=== PATIENT | male | born 1970 | race Hispanic/Latino ===

== ENCOUNTER 2016-09-02 20:37 | Emergency (ER) | payer OTHER ==
[2016-09-02 21:17] VITALS: O2SAT 98
[2016-09-02] MEDS ORDERED: ceFAZolin 1 GM in Sodium Chloride 0.9% 100 ML IVPB STA (21:51)
[2016-09-02 22:21] LABS: BASO % 0.6 % (0.0-2.0); EOS # 0.1 K/uL (0.0-0.7); EOS % 1.3 % (0.0-4.0); HEMATOCRIT 42.8 % (35.0-51.0); LYMPH # 1.8 K/uL (1.0-4.3); LYMPH % 23.7 % (20.0-40.0); MEAN CELL VOLUME 85.1 fl (80.0-94.0); MEAN CORPUSCULAR HEMOGLOBIN 29.3 pg (27.0-31.0); MEAN CORPUSCULAR HGB CONC 34.4 g/dL (33.0-37.0); MEAN PLATELET VOLUME 8.1 fl (7.2-11.7); MONO % 13.5 % (0.0-10.0); NEUT # 4.5 K/uL (1.8-7.0); NEUT % 60.9 % (50.0-75.0); NRBC % 0.1 % (0.0-0.0); RED CELL DISTRIBUTION WIDTH 13.9 % (11.5-14.5); WHITE BLOOD COUNT 7.4 K/uL (4.8-10.8)
[2016-09-02 22:26] LABS: CHLORIDE 106 mmol/L (98-107); POTASSIUM 3.8 MMOL/L (3.6-5.0); SODIUM 140 mmol/l (132-148)
[2016-09-02 22:29] LABS: BLOOD UREA NITROGEN 17 mg/dl (9-20); CARBON DIOXIDE 25 mmol/L (22-30); GFR AFRICAN-AMERICAN > 60; GLUCOSE,RANDOM 114 mg/dL (75-110)
--- NOTE | 2016-09-02 22:29 | ED PDOC ---
HPI: Skin/Bite Injury Time Seen by Provider: 09/02/16 21:30 Chief Complaint (Nursing): Groin Pain Chief Complaint (Provider): Fever History Per: Patient History/Exam Limitations: no limitations Onset/Duration Of Symptoms: Days (x3) Current Symptoms Are (Timing): Still Present Additional Complaint(s): Karlos Baires is a 46 year old male who presents to the emergency department for an evaluation of a fever associated with chills, right buttock pain, and swelling on his right groin area. Denied any cough, shortness of breath, abdomen pain, dysuria or hematuria. Patient stated he [place] when his symptoms began. Reported taking ibuprofen and acetaminophen for symptom relief. PMD: none provided Past Medical History Reviewed: Historical Data, Nursing Documentation, Vital Signs Vital Signs: Last Vital Signs Temp 98.9 F 09/02/16 21:14 Pulse 74 09/02/16 21:14 Resp 16 09/02/16 21:14 BP 147/78 09/02/16 21:14 Pulse Ox 98 09/02/16 22:45 - Medical History PMH: Back Problems, Hypercholesterolemia - Surgical History Surgical History: Back Surgery (x2), Tonsillectomy - Family History Family History: States: Unknown Family Hx - Social History Current smoker - smoking cessation education provided: No Alcohol: Occasional Drugs: Denies - Home Medications Home Medications: Ambulatory Orders Medication Instructions Recorded Cephalexin [cephalexin] 500 mg PO BID #20 cap 09/02/16 - Allergies Allergies/Adverse Reactions: Allergies Allergy/AdvReac Type Severity Reaction Status Date / Time No Known Allergies Allergy Verified 09/02/16 21:14 Review of Systems ROS Statement: Except As Marked, All Systems Reviewed And Found Negative Constitutional: Positive for: Fever, Chills Respiratory: Negative for: Cough, Shortness of Breath Gastrointestinal: Negative for: Abdominal Pain Genitourinary Male: Positive for: Other (swelling to right groin area). Negative for: Dysuria, Hematuria Musculoskeletal: Positive for: Other (right buttock pain) Physical Exam - Reviewed Nursing Documentation Reviewed: Yes Vital Signs Reviewed: Yes - Physical Exam Appears: Positive for: Well, Non-toxic, No Acute Distress Head Exam: Positive for: ATRAUMATIC, NORMAL INSPECTION, NORMOCEPHALIC Cardiovascular/Chest: Positive for: Regular Rate, Rhythm Respiratory: Positive for: Normal Breath Sounds. Negative for: Crackles, Rales , Rhonchi, Wheezing Gastrointestinal/Abdominal: Positive for: Normal Exam, Bowel Sounds, Soft. Negative for: Tenderness, Guarding, Rebound Rectal: Positive for: Tenderness (superior aspect of right buttock. Erythematous induration to obvious skin break extending to left buttock). Negative for: Normal Exam, Other (fluctuation) Extremity: Positive for: Normal ROM Lymphatic: Positive for: Inguinal Node Tenderness (hypertrophic right side). Negative for: Normal Exam Neurologic/Psych: Positive for: Alert (x3), sales ambassador II-XII, Oriented - Laboratory Results Result Diagrams: 09/02/16 22:10 09/02/16 22:10 - ECG O2 Sat by Pulse Oximetry: 98 (RA) Pulse Ox Interpretation: Normal Medical Decision Making Medical Decision Making: Initial Impression: Cellulites without abscess R/O sepsis Initial Plan: * VBG Shock panel * Labs * Erythrocyte sed rate * Ancef 1gm/100ml IVPB * Blood culture * Wound culture * Re-evaluation Scribe Attestation: Documented by Lynn Rasheed, acting as a scribe for Linden Colvin MD. Provider Scribe Attestation: All medical record entries made by the Scribe were at my direction and personally dictated by me. I have reviewed the chart and agree that the record accurately reflects my personal performance of the history, physical exam, medical decision making, and the department course for this patient. I have also personally directed, reviewed, and agree with the discharge instructions and disposition. 11.14p patient feels okay. Labs reviewed with patient. No evidence of persistent or severe systemic involvement. Will d/c patient on Keflex Disposition - Clinical Impression Clinical Impression: Cellulitis of buttock - Patient ED Disposition Is Patient to be Admitted: No Doctor Will See Patient In The: Office Counseled Patient/Family Regarding: Diagnosis, Need For Followup, Rx Given - Disposition Referrals: Sundar Carrizales MD [Staff Provider] - [facility] [Outside] Disposition: Routine/Home Disposition Time: 23:16 Condition: STABLE Prescriptions: Cephalexin [cephalexin] 500 mg PO BID #20 cap Instructions: Cellulitis (ED) Forms: [facility] ([place]) - POA Present On Arrival: None
[2016-09-02 22:30] LABS: CALCIUM 9.2 mg/dL (8.4-10.2)
[2016-09-02 23:02] LABS: VENOUS BLOOD GAS BASE EXCESS -3.1 mmol/L (0.0-2.0); VENOUS BLOOD GAS PCO2 35 mmHg (40-60); VENOUS BLOOD PH 7.39 (7.32-7.43)
[2016-09-02 23:59] VITALS: BP 141/77; PULSE 81; RESP 18; TEMP 98.8
== END 2016-09-03 00:01 | disposition home or self-care (01) ==
LOC: H.ER 20:37
DX: L03.317 Cellulitis of buttock (principal); E78.00 Pure hypercholesterolemia, unspecified

== ENCOUNTER 2017-07-07 22:30 | Emergency (ER) | payer OTHER ==
[2017-07-07 22:39] VITALS: O2SAT 99
[2017-07-07] MEDS ORDERED: ceFAZolin 1 GM in Sodium Chloride 0.9% 100 ML IVPB ONE (23:09)
--- NOTE | 2017-07-07 23:40 | ED PDOC ---
HPI: Skin/Bite Injury Time Seen by Provider: 07/07/17 22:51 Chief Complaint (Nursing): Abnormal Skin Integrity Chief Complaint (Provider): Pain, redness left buttocks History Per: Patient History/Exam Limitations: no limitations Onset/Duration Of Symptoms: Days (2) Current Symptoms Are (Timing): Still Present Quality Of Symptoms: Painful Severity: Moderate Pain Scale Rating Of: 6 Additional Complaint(s): 47 yo male with no medical problems presents with redness and pain to the left buttocks x 2 days. PT denies fever/chills. PT states he was seen in the ER last year for similar and was given IV antibiotics. Pt states he followed up with PMD last time and everything resolved. Past Medical History Reviewed: Historical Data, Nursing Documentation, Vital Signs Vital Signs: Last Vital Signs Temp 98.8 F 07/07/17 22:37 Pulse 80 07/07/17 22:37 Resp 16 07/07/17 22:37 BP 134/80 07/07/17 22:37 Pulse Ox 99 07/07/17 22:37 - Medical History PMH: Back Problems, Hypercholesterolemia - Surgical History Surgical History: Back Surgery (x2), Tonsillectomy - Family History Family History: States: Unknown Family Hx - Living Arrangements Living Arrangements: With Family - Social History Current smoker - smoking cessation education provided: No - Home Medications Home Medications: Ambulatory Orders Medication Instructions Recorded Cephalexin [cephalexin] 500 mg PO BID #20 cap 09/02/16 Cephalexin [Keflex] 500 mg PO TID #30 capsule 07/07/17 - Allergies Allergies/Adverse Reactions: Allergies Allergy/AdvReac Type Severity Reaction Status Date / Time No Known Allergies Allergy Verified 09/02/16 21:14 Review of Systems ROS Statement: Except As Marked, All Systems Reviewed And Found Negative Constitutional: Negative for: Fever, Chills Skin: Positive for: Other Physical Exam - Reviewed Nursing Documentation Reviewed: Yes Vital Signs Reviewed: Yes - Physical Exam Appears: Positive for: Well, Non-toxic, No Acute Distress Head Exam: Positive for: ATRAUMATIC, NORMAL INSPECTION, NORMOCEPHALIC Skin: Positive for: Warm. Negative for: Normal Color (Erythema left medial buttocks without palpable abscess formation, no drainage ) Eye Exam: Positive for: Normal appearance ENT: Positive for: Normal ENT Inspection Neck: Positive for: Normal Respiratory: Negative for: Accessory Muscle Use, Respiratory Distress Back: Positive for: Normal Inspection Extremity: Positive for: Normal ROM Neurologic/Psych: Positive for: Alert, Oriented, Gait - ECG O2 Sat by Pulse Oximetry: 99 Medical Decision Making Medical Decision Making: Pt did not want pain medications in ER. IV ancef ordered. Disposition - Clinical Impression Clinical Impression: Cellulitis of buttock - Patient ED Disposition Is Patient to be Admitted: No Counseled Patient/Family Regarding: Diagnosis, Need For Followup, Rx Given - Disposition Disposition: Routine/Home Disposition Time: 23:41 Condition: STABLE Prescriptions: Cephalexin [Keflex] 500 mg PO TID #30 capsule Instructions: Cellulitis (Skin Infection), Adult (DC)
[2017-07-09 03:17] VITALS: BP 110/76; PULSE 76; RESP 18; TEMP 98
== END 2017-07-08 12:20 | disposition home or self-care (01) ==
LOC: H.ER 22:30
DX: L03.317 Cellulitis of buttock (principal); E78.00 Pure hypercholesterolemia, unspecified
CPT/HCPCS: 96374; 99282; J0690